=== PATIENT | male | born 1945 | race Hispanic/Latino ===

== ENCOUNTER 2021-05-05 18:12 | Inpatient (IN) | payer MEDICARE ==
[~2021-05-05] VITALS: Ht 172.7 cm; Wt 93.9 kg
[2021-05-05 19:26] LABS: BASOPHILS % (AUTO) 0.4 % (0.0-5.0); EOSINOPHILS % (AUTO) 2.4 % (0.0-8.0); HEMATOCRIT 39.9 % (42-54); LYMPHOCYTES % (AUTO) 10.9 % (21.0-51.0); MEAN CORPUSCULAR HEMOGLOBIN 26.9 pg (27.0-33.0); MEAN CORPUSCULAR HGB CONC 32.1 g/dL (32.0-36.0); MONOCYTES % (AUTO) 8.5 % (3.0-13.0); NEUTROPHILS % (AUTO) 77.5 % (40.0-77.0); PLATELET COUNT (AUTO) 293 K/uL (130-400); RED BLOOD CELL COUNT(AUTO) 4.75 MIL/uL (4.50-6.20); RED CELL DISTRIBUTION WIDTH 14.1 % (11.0-15.5); WHITE BLOOD COUNT (AUTO) 9.5 K/uL (4.8-10.8)
[2021-05-05 19:39] LABS: CREATININE 3.2 mg/dL (0.5-1.5); POTASSIUM 4.9 mmol/L (3.5-5.1)
[2021-05-05 19:43] LABS: ALBUMIN 3.4 g/dL (3.5-5.0); BILIRUBIN,TOTAL 0.5 mg/dL (0.2-1.0); CRP QUANTITATIVE 66.2 mg/L (0.00-9.0); TOTAL PROTEIN, SERUM 7.1 g/dL (6.0-8.3)
[2021-05-05 19:48] LABS: B-TYPE NATRIURETIC PEPTIDE 96 pg/mL (0-100)
[2021-05-05] MEDS ORDERED: TETANUS/DIPHTHERIA TOXOID [ADULT] 0.5 ML VIAL IM ONE ×2 (20:00→21:49)
[2021-05-05] MEDS ORDERED: NITROGLYCERIN 1GM OINT 1 INCH/1GM TD ONE ×2 (20:30→21:48)
[2021-05-05] MEDS ORDERED: ASPIRIN 325MG TAB PO ONE (20:30)
[2021-05-05] MEDS ORDERED: ACETAMINOPHEN 325 MG TAB PO PRN ×2 (21:30)
[2021-05-05] MEDS ORDERED: LACTULOSE 20 GM/30 ML UDCUP PO PRN (21:30)
[2021-05-05] MEDS ORDERED: ONDANSETRON 4MG INJ IV PRN (21:30)
[2021-05-05] MEDS ORDERED: NITROGLYCERIN 0.4 MG SL TAB SL PRN (21:30)
[2021-05-05] MEDS ORDERED: MORPHINE 2 MG SYG IV PRN (21:30)
[2021-05-05] MEDS ORDERED: LISI40TA9 PO (21:35)
[2021-05-05] MEDS ORDERED: FURO20TA4 PO (21:35)
[2021-05-05] MEDS ORDERED: PANT20TA18 PO (21:35)
[2021-05-05] MEDS ORDERED: CLOP75TA32 PO (21:35)
[2021-05-05] MEDS ORDERED: MELO10CA3 PO (21:35)
[2021-05-05] MEDS ORDERED: OXYB5TAB15 PO (21:35)
[2021-05-05] MEDS ORDERED: CETI10TA57 PO (21:35)
[2021-05-05] MEDS ORDERED: SERT-440 PO (21:35)
[2021-05-05] MEDS ORDERED: ALLO300T2 PO (21:35)
[2021-05-05] MEDS ORDERED: GABA-533 PO (21:35)
[2021-05-05] MEDS ORDERED: ASPIRIN 325MG TAB ONE (21:48)
[2021-05-05 23:00] VITALS: BP 171/57
[2021-05-05] MEDS: HYDRALAZINE 20MG/ML VIAL IV PRN (23:29)
[2021-05-05 23:59] VITALS: BP 171/57
[2021-05-06 00:49] LABS: APPEARANCE,URINE CLEAR (CLEAR); BILIRUBIN,URINE N (NEGATIVE); COLOR,URINE YELLOW (YELLOW); GLUCOSE, URINE (UA) NEGATIVE (NEGATIVE); KETONES,URINE TRACE mg/dL (NEGATIVE); OCCULT BLOOD,URINE NEGATIVE (NEGATIVE); PH,URINE 5.5 (5.0-8.0); PROTEIN,URINE NEGATIVE (NEGATIVE)
[2021-05-06 00:50] LABS: LEUKOCYTE ESTERASE ,URINE LARGE (NEGATIVE); NITRATE,URINE NEGATIVE (NEGATIVE)
[2021-05-06 00:55] LABS: BACTERIA,URINE Few /HPF (None Seen); SQUAMOUS EPITHELIAL CELL,UR 0-2 /HPF (0-2)
[2021-05-06] MEDS ORDERED: LEVOFLOXACIN 750 MG/D5W 150 ML 150 ML IV ONE (03:30)
[2021-05-06] MEDS: ASPIRIN 81 MG EC TAB PO SCH ×2 (03:56→15:40)
[2021-05-06 04:02] VITALS: BP 120/57
[2021-05-06] MEDS: 0.9%NACL 1000ML 1,000 ML IV SCH ×2 (04:03→17:20)
[2021-05-06 04:07] LABS: CHOLESTEROL 139 mg/dL (<200); HDL CHOLESTEROL 26 mg/dL (29-71); LDL DIRECT 83 mg/dL (0-99); TRIGLYCERIDES 153 mg/dL (30-200)
[2021-05-06 07:30] VITALS: BP 122/68
[2021-05-06 08:21] LABS: ALBUMIN 3.5 g/dL (3.5-5.0); BILIRUBIN,TOTAL 0.7 mg/dL (0.2-1.0); CREATININE 2.8 mg/dL (0.5-1.5); POTASSIUM 4.5 mmol/L (3.5-5.1); THYROID STIMULATING HORMONE 1.7 uIU/mL (0.36-3.74); TOTAL PROTEIN, SERUM 7.4 g/dL (6.0-8.3)
[2021-05-06 11:22] VITALS: BP 115/71
[2021-05-06] MEDS ORDERED: TAMSULOSIN HCL 0.4 MG CAP.ER.24H PO SCH (12:30)
[2021-05-06] MEDS: TAMSULOSIN HCL 0.4 MG CAP.ER.24H PO SCH (15:40)
[2021-05-06] MEDS: THIAMINE HCL 100 MG TABLET PO SCH (15:40)
[2021-05-06] MEDS: FOLIC ACID 1 MG TABLET PO SCH (15:40)
[2021-05-06] MEDS: ENOXAPARIN SODIUM 40 MG/0.4 ML SYRINGE SQ SCH (15:48)
[2021-05-06 15:56] VITALS: BP 116/27
[2021-05-06 19:06] VITALS: BP 147/57
[2021-05-06 23:13] VITALS: BP 142/70
[2021-05-07 04:18] VITALS: BP 147/57
[2021-05-07 04:39] LABS: BASOPHILS % (AUTO) 0.5 % (0.0-5.0); EOSINOPHILS % (AUTO) 3.2 % (0.0-8.0); HEMATOCRIT 36.7 % (42-54); MEAN CORPUSCULAR HEMOGLOBIN 27.7 pg (27.0-33.0); MEAN CORPUSCULAR HGB CONC 32.2 g/dL (32.0-36.0); MEAN CORPUSCULAR VOLUME 86.2 fL (79-99); MONOCYTES % (AUTO) 8.5 % (3.0-13.0); NEUTROPHILS % (AUTO) 70.3 % (40.0-77.0); PLATELET COUNT (AUTO) 240 K/uL (130-400); RED BLOOD CELL COUNT(AUTO) 4.26 MIL/uL (4.50-6.20); RED CELL DISTRIBUTION WIDTH 14.1 % (11.0-15.5); WHITE BLOOD COUNT (AUTO) 8.2 K/uL (4.8-10.8)
[2021-05-07] MEDS: 0.9%NACL 1000ML 1,000 ML IV SCH (04:47)
[2021-05-07 04:51] LABS: CREATININE 2.3 mg/dL (0.5-1.5); PHOSPHORUS 3.9 mg/dL (2.5-4.9); POTASSIUM 4.5 mmol/L (3.5-5.1)
[2021-05-07 08:10] VITALS: BP 141/64
[2021-05-07] MEDS: ENOXAPARIN SODIUM 40 MG/0.4 ML SYRINGE SQ SCH (10:12)
[2021-05-07 11:21] VITALS: BP 153/56
[2021-05-07] MEDS: ASPIRIN 81 MG EC TAB PO SCH (12:23)
[2021-05-07] MEDS: FOLIC ACID 1 MG TABLET PO SCH (12:23)
[2021-05-07] MEDS: THIAMINE HCL 100 MG TABLET PO SCH (12:23)
[2021-05-07] MEDS: TAMSULOSIN HCL 0.4 MG CAP.ER.24H PO SCH (12:24)
[2021-05-07 16:07] VITALS: BP 158/57
[2021-05-07 20:42] VITALS: BP 135/59
[2021-05-07 23:37] VITALS: BP 145/65
[2021-05-08] VITALS (7 sets, daily range): BP systolic 144–201; BP diastolic 63–81
[2021-05-08] MEDS ORDERED: LEVOFLOXACIN 750 MG/D5W 150 ML 150 ML IV SCH (03:30)
[2021-05-08 06:54] LABS: BASOPHILS % (AUTO) 0.3 % (0.0-5.0); EOSINOPHILS % (AUTO) 3.3 % (0.0-8.0); HEMATOCRIT 37.3 % (42-54); LYMPHOCYTES % (AUTO) 14.3 % (21.0-51.0); MEAN CORPUSCULAR HEMOGLOBIN 27.4 pg (27.0-33.0); MEAN CORPUSCULAR HGB CONC 32.7 g/dL (32.0-36.0); MEAN CORPUSCULAR VOLUME 83.8 fL (79-99); MONOCYTES % (AUTO) 8.6 % (3.0-13.0); NEUTROPHILS % (AUTO) 73.1 % (40.0-77.0); PLATELET COUNT (AUTO) 273 K/uL (130-400); RED BLOOD CELL COUNT(AUTO) 4.45 MIL/uL (4.50-6.20); RED CELL DISTRIBUTION WIDTH 13.8 % (11.0-15.5); WHITE BLOOD COUNT (AUTO) 7.6 K/uL (4.8-10.8)
[2021-05-08 07:04] LABS: POTASSIUM 4.4 mmol/L (3.5-5.1)
[2021-05-08] MEDS: TAMSULOSIN HCL 0.4 MG CAP.ER.24H PO SCH (09:05)
[2021-05-08] MEDS: THIAMINE HCL 100 MG TABLET PO SCH (09:05)
[2021-05-08] MEDS: ASPIRIN 81 MG EC TAB PO SCH (09:05)
[2021-05-08] MEDS: FOLIC ACID 1 MG TABLET PO SCH (09:06)
[2021-05-08] MEDS: ENOXAPARIN SODIUM 40 MG/0.4 ML SYRINGE SQ SCH (09:06)
[2021-05-08] MEDS: AMLODIPINE 5 MG TAB PO SCH (13:24)
[2021-05-08] MEDS ORDERED: AMOXICILLIN 500 MG CAPSULE PO SCH (15:00)
[2021-05-08] MEDS: HYDRALAZINE 20MG/ML VIAL IV PRN (20:32)
[2021-05-08] MEDS: AMOXICILLIN 500 MG CAPSULE PO SCH (21:00)
[2021-05-08] MEDS: INSULIN HUMULIN R 100 UNIT/ML 3ML SQ SCH (21:05)
[2021-05-09 03:42] VITALS: BP 161/101
[2021-05-09] MEDS: HYDRALAZINE 20MG/ML VIAL IV PRN (03:56)
[2021-05-09] MEDS ORDERED: LORAZEPAM 2 MG/ML 1 ML VIAL ONE (05:17)
[2021-05-09] MEDS ORDERED: LORAZEPAM 2 MG/ML 1 ML VIAL IVP ONE (05:30)
[2021-05-09] MEDS: INSULIN HUMULIN R 100 UNIT/ML 3ML SQ SCH ×4 (06:25→20:33)
[2021-05-09 07:22] LABS: BASOPHILS % (AUTO) 0.2 % (0.0-5.0); EOSINOPHILS % (AUTO) 1.5 % (0.0-8.0); MEAN CORPUSCULAR HEMOGLOBIN 27.3 pg (27.0-33.0); MEAN CORPUSCULAR VOLUME 82.8 fL (79-99); MONOCYTES % (AUTO) 8.5 % (3.0-13.0); NEUTROPHILS % (AUTO) 80.3 % (40.0-77.0); PLATELET COUNT (AUTO) 286 K/uL (130-400); RED BLOOD CELL COUNT(AUTO) 4.83 MIL/uL (4.50-6.20); WHITE BLOOD COUNT (AUTO) 8.6 K/uL (4.8-10.8)
[2021-05-09 07:27] LABS: CREATININE 1.6 mg/dL (0.5-1.5); POTASSIUM 3.6 mmol/L (3.5-5.1)
[2021-05-09 07:43] VITALS: BP 110/42
[2021-05-09 08:47] LABS: HEMOGLOBIN A1C 6.8 % (4.0-6.0)
[2021-05-09] MEDS: AMLODIPINE 5 MG TAB PO SCH (09:05)
[2021-05-09] MEDS: ALLOPURINOL 300 MG TABLET PO SCH (09:06)
[2021-05-09] MEDS: OXYBUTYNIN CHLORIDE 5 MG TABLET PO SCH (09:06)
[2021-05-09] MEDS: PANTOPRAZOLE 40 MG TAB DR PO SCH (09:06)
[2021-05-09] MEDS: CETIRIZINE HCL 5 MG TABLET PO SCH (09:06)
[2021-05-09] MEDS: CLOPIDOGREL 75MG TAB PO SCH (09:06)
[2021-05-09] MEDS: SERTRALINE HCL 50 MG TABLET PO SCH (09:06)
[2021-05-09] MEDS: TAMSULOSIN HCL 0.4 MG CAP.ER.24H PO SCH (09:06)
[2021-05-09] MEDS: ENOXAPARIN SODIUM 40 MG/0.4 ML SYRINGE SQ SCH (09:07)
[2021-05-09] MEDS: FOLIC ACID 1 MG TABLET PO SCH (09:09)
[2021-05-09] MEDS: THIAMINE HCL 100 MG TABLET PO SCH (09:09)
[2021-05-09] MEDS: AMOXICILLIN 500 MG CAPSULE PO SCH ×2 (09:48→20:32)
[2021-05-09 11:05] VITALS: BP 136/104
[2021-05-09 16:00] VITALS: BP 135/71
[2021-05-09 20:15] VITALS: BP 145/62
[2021-05-09] MEDS ORDERED: INSULIN GLARGINE 100 UNITS/ML 10 ML VIAL SQ SCH (21:00)
[2021-05-09 23:37] VITALS: BP 143/79
[2021-05-10 04:34] VITALS: BP 162/88
[2021-05-10] MEDS: INSULIN HUMULIN R 100 UNIT/ML 3ML SQ SCH ×2 (05:29→11:30)
[2021-05-10 06:55] LABS: CREATININE 1.3 mg/dL (0.5-1.5); POTASSIUM 3.8 mmol/L (3.5-5.1)
[2021-05-10 07:30] VITALS: BP 148/76
[2021-05-10] MEDS: CLOPIDOGREL 75MG TAB PO SCH (08:21)
[2021-05-10] MEDS: CETIRIZINE HCL 5 MG TABLET PO SCH (08:21)
[2021-05-10] MEDS: ALLOPURINOL 300 MG TABLET PO SCH (08:21)
[2021-05-10] MEDS: AMOXICILLIN 500 MG CAPSULE PO SCH (08:21)
[2021-05-10] MEDS: OXYBUTYNIN CHLORIDE 5 MG TABLET PO SCH (08:21)
[2021-05-10] MEDS: TAMSULOSIN HCL 0.4 MG CAP.ER.24H PO SCH (08:21)
[2021-05-10] MEDS: PANTOPRAZOLE 40 MG TAB DR PO SCH (08:22)
[2021-05-10] MEDS: SERTRALINE HCL 50 MG TABLET PO SCH (08:22)
[2021-05-10] MEDS: ENOXAPARIN SODIUM 40 MG/0.4 ML SYRINGE SQ SCH (08:25)
[2021-05-10] MEDS: FOLIC ACID 1 MG TABLET PO SCH (08:25)
[2021-05-10] MEDS: THIAMINE HCL 100 MG TABLET PO SCH (08:25)
[2021-05-10] MEDS ORDERED: AMLODIPINE 5 MG TAB PO SCH (09:00)
== END 2021-05-10 17:00 | DRG 92 ==
LOC: EDH 18:12 → EDHIP 21:11 → 4BH 22:42
PROVIDERS: ADMIT Hospitalist; ATTEND Hospitalist
PROC: 3E0234Z Introduction of Serum, Toxoid and Vaccine into Muscle, Percutaneous Approach (ICD-10-PCS; principal; 2021-05-05)
DX: G92.8 Other toxic encephalopathy (principal); N17.9 Acute kidney failure, unspecified; N41.0 Acute prostatitis; N39.0 Urinary tract infection, site not specified; I69.351 Hemiplegia and hemiparesis following cerebral infarction affecting right dominant side; G95.89 Other specified diseases of spinal cord; E66.01 Morbid (severe) obesity due to excess calories; N18.9 Chronic kidney disease, unspecified; M19.90 Unspecified osteoarthritis, unspecified site; E11.22 Type 2 diabetes mellitus with diabetic chronic kidney disease; E78.5 Hyperlipidemia, unspecified; E86.0 Dehydration; H54.8 Legal blindness, as defined in USA; I12.9 Hypertensive chronic kidney disease with stage 1 through stage 4 chronic kidney disease, or unspecified chronic kidney disease; I25.10 Atherosclerotic heart disease of native coronary artery without angina pectoris; I35.0 Nonrheumatic aortic (valve) stenosis; M47.812 Spondylosis without myelopathy or radiculopathy, cervical region; M48.02 Spinal stenosis, cervical region; N40.0 Benign prostatic hyperplasia without lower urinary tract symptoms; R54 Age-related physical debility; R62.7 Adult failure to thrive; S51.812A Laceration without foreign body of left forearm, initial encounter; S90.412A Abrasion, left great toe, initial encounter; W19.XXXA Unspecified fall, initial encounter; Z68.31 Body mass index [BMI] 31.0-31.9, adult; Y93.89 Activity, other specified; Y92.89 Other specified places as the place of occurrence of the external cause; Y99.8 Other external cause status; I25.2 Old myocardial infarction; Z79.02 Long term (current) use of antithrombotics/antiplatelets; Z79.4 Long term (current) use of insulin; Z79.899 Other long term (current) drug therapy; Z90.49 Acquired absence of other specified parts of digestive tract; Z87.891 Personal history of nicotine dependence; Z23 Encounter for immunization; Z82.49 Family history of ischemic heart disease and other diseases of the circulatory system; Z20.822 Contact with and (suspected) exposure to COVID-19
CPT/HCPCS: 36415; 70450; 70551; 71045; 72141; 72146; 74176; 74230; 76770; 80048; 80053; 80061; 81001; 82550; 82607; 82948; 83036; 83605; 83735; 83880; 84100; 84443; 84484; 85025; 86140; 87077; 87088; 87186; 87635; 90714; 92610; 92611; 93005; 93306; 93356; 97039; G0378; J0360; J1650; J1815; J1956; J2060